=== PATIENT | female | born 1960 | race Caucasian/White ===

== ENCOUNTER 2020-01-14 15:58 | Emergency (ER) | payer MEDICARE, MEDICAID, OTHER ==
[~2020-01-14] VITALS: Ht 160 cm; Wt 71.7 kg
--- NOTE | 2020-01-14 16:10 | NUR ---
THROAT PAIN, PAIN WHEN SWALLOWING, POSSIBLE FISH BONE STUCK IN THROAT. PATIENT A/OX4, BREATHING EVEN AND UNLABORED, NO SOB NOTED. NEEDS ATTENDED. AMBULATORY WITH STEADY GAIT.
[2020-01-14 19:10] VITALS: BP 146/84
--- NOTE | 2020-01-14 19:10 | NUR ---
ambulatory, no sob noted, patient discharged to home in stable condition. Written and verbal after care instructions given. Patient verbalizes understanding of instruction.
== END 2020-01-14 19:10 | disposition home or self-care (01) ==
LOC: ER 16:08
DX: J02.9 Acute pharyngitis, unspecified (principal); I10 Essential (primary) hypertension
CPT/HCPCS: 70490-TC